=== PATIENT | female | born 1960 | race Caucasian/White ===

== ENCOUNTER 2019-03-21 12:44 | Day surgery (SDC) | payer MEDICAID ==
[2019-03-21] MEDS ORDERED: PROPOFOL 20 ML (13:36)
== END 2019-03-21 15:16 | disposition home or self-care (01) ==
LOC: GIL 12:44
DX: Z12.11 Encounter for screening for malignant neoplasm of colon (principal); K64.8 Other hemorrhoids; K57.30 Diverticulosis of large intestine without perforation or abscess without bleeding
CPT/HCPCS: 45378